=== PATIENT | male | born 1965 | race Caucasian/White ===

== ENCOUNTER 2016-07-06 15:04 | Emergency (ER) | payer MEDICAID ==
--- NOTE | ~2016-07-06 | ER ---
PATIENT'S NAME: KIANA HERNANDEZ [facility] AGE: 51 Y [address] ROOM: [place] [id number] LOCATION: ED ADMIT DATE: 07/06/2016 ER/Outpatient Report DISCHARGE DATE: 07/06/2016 FAMILY PHYSICIAN: PHYSICIAN, NO ATTENDING PHYSICIAN: Gerson See Time of Arrival: Admission date and time documented on the medical record. Time of Evaluation: I saw the patient at 1530 hours. CHIEF COMPLAINT: Elevated blood pressure. HISTORY OF PRESENT ILLNESS: This patient is a 51-year-old male, who comes in with kind of a global headache and elevated blood pressure. He is on no medications at the present time in regard to his blood pressure. He does take Advil over the counter. He does have a past history of diabetes, glv-jejnepa-axqcesric, but he is not on any medications at the present time. No visual or auditory disturbance, lateralizing weakness, numbness, tingling, or loss of function. No chest pain or shortness of breath. No abdominal pain, nausea, vomiting, or diarrhea. No urinary symptoms. No lightheadedness, dizziness, syncope, or near syncope. No fall or trauma. No recent colds, coughs, flus, fever, chills, or sweats. Does have a global headache. No eyes, ears, nose, throat, neck, or spine pain. No joint or muscle swelling, redness, or pain. No skin eruptions or rash. No history of neuro changes or psych issues. HOME MEDICATIONS: See attached medication list. ALLERGIES: NONE. SOCIAL HISTORY: The patient smokes a pack of cigarettes per day. Nondrinker. No other illicit drugs. SIGNIFICANT PAST MEDICAL HISTORY: Zpa-ihydrrb-lslwsrghc diabetes mellitus, hypertension, tobacco abuse, lumbar spinal stenosis, and chronic low back pain. OPERATIONS: Low back surgery x2, knee surgery, and cholecystectomy. REVIEW OF SYSTEMS: All systems reviewed by me are negative with the exception of those discussed PATIENT'S NAME: KIANA HERNANDEZ [facility] AGE: 51 Y [address] ROOM: [place] [id number] LOCATION: ED ADMIT DATE: 07/06/2016 ER/Outpatient Report DISCHARGE DATE: 07/06/2016 FAMILY PHYSICIAN: PHYSICIAN, NO ATTENDING PHYSICIAN: Gerson See in the history of present illness. PHYSICAL EXAMINATION: VITAL SIGNS: Temperature 98.1, tympanic; pulse 85, regular; respirations 16; blood pressure 229/134; and O2 saturation on room air is 96%. Susana Coma Scale of 15. HEAD: Normocephalic. EYES, EARS, NOSE, AND THROAT: Clear. Mucous membranes moist. Fundi benign. NECK: No nuchal rigidity. No thyromegaly or cervical adenopathy. No carotid bruits. SPINE: Negative. LUNGS: Clear. No rales, rhonchi, or wheezes. HEART: Regular. Pulses palpable. ABDOMEN: Soft, nondistended, nontender. Good bowel tones. No organomegaly or abnormal mass palpable. EXTREMITIES: No peripheral edema, cyanosis, or deformity. NEUROVASCULAR: Intact. SKIN: Clear. No skin eruptions or rash. DIAGNOSTIC DATA: EKG showed sinus rhythm. No acute ST elevation, ischemic change, or arrhythmia. Chest x-ray showed no acute infiltrate or changes. We will review x-ray with the radiologist. White count was 10,200, 72 segs, 22 lymphs, 5 monos, 1 eo, 1 baso; hemoglobin 15.7 with hematocrit 45.3; platelet count 186,000. PTT was 26, protime 10.2 with an INR of 1.0. Thyroid tests were normal. CMS was normal except for an elevated potassium of 3.6, elevated glucose of 251, magnesium was 1.8, CPK was 164. Fennm-np-bpoy cardiac enzymes were normal. Urinalysis was clear except for 250 of glucose on dipstick. EMERGENCY DEPARTMENT COURSE: Did start the patient on IV nitroglycerin drip. Did give him up to 10 mcg, blood pressure came down to 152/96. Gave him clonidine 0.1 mg orally. IMPRESSION: 1. Hypertensive urgency. 2. Wld-qcpqkcd-liksjftbc diabetes mellitus. PLAN: We did dismiss the patient home. Start him on clonidine 0.1 mg b.i.d. for 10 days. He is to follow up with personal physician sometime in the next 7 to 10 days or sooner. He will need to get on some diabetes medications also. Discussion ensued with the patient concerning my findings and recommendations, he understands. PATIENT'S NAME: KIANA HERNANDEZ [facility] AGE: 51 Y [address] ROOM: [place] [id number] LOCATION: [facility] ADMIT DATE: 07/06/2016 ER/Outpatient Report DISCHARGE DATE: 07/06/2016 FAMILY PHYSICIAN: EMILI NICHOLS ATTENDING PHYSICIAN: Gerson See MD ADAIR BYRD/modl /[id number] d: 07/07/16 0027 t: 07/07/16 1815, OUTPATIENT REPORT
[2016-07-06 15:58] LABS: BASOPHIL # 0.1 K/uL (0.0-0.2); BASOPHIL % 0.5 %; EOSINOPHIL # 0.1 K/uL (0.0-0.5); EOSINOPHIL % 0.8 %; HEMATOCRIT 45.3 % (37.0-53.0); HEMOGLOBIN 15.7 g/dL (12.0-17.0); IMMATURE GRANULOCYTE % 0.3 %; LYMPHOCYTE # 2.3 K/uL (0.8-4.0); MCH 29.4 pg (27.0-34.0); MCHC 34.7 gm/dL (32.0-36.5); MCV 84.8 fl (83.0-98.0); MONOCYTE # 0.5 K/uL (0.0-1.0); MONOCYTE % 4.8 %; MPV 11.7 fl (9.4-12.4); NEUTROPHIL # (ANC) 7.3 K/uL (1.4-9.0); NEUTROPHIL % 71.6 %; NRBC % 0.8 /100WBC (0-0.00); PLATELET COUNT 186 K/uL (150-450); RBC 5.34 M/uL (4.00-6.00); RDW-CV 12.5 % (11.9-14.6); WBC 10.2 K/uL (4.0-11.0)
[2016-07-06 16:03] LABS: BILIRUBIN URINE NEGATIVE (NEGATIVE); BLOOD URINE NEGATIVE /UL (NEGATIVE); COLOR URINE STRAW (YELLOW); GLUCOSE URINE 250 mg/dL (NEGATIVE); KETONE URINE NEGATIVE (NEGATIVE); LEUKOCYTES URINE NEGATIVE /UL (NEGATIVE); NITRITE URINE NEGATIVE (NEGATIVE); PROTEIN URINE NEGATIVE (NEGATIVE); SPEC GRAVITY URINE 1.005 (1.003-1.035); TURBIDITY URINE CLEAR (CLEAR); UROBILINOGEN URINE NORMAL (NORMAL)
[2016-07-06 16:21] LABS: ALBUMIN 3.9 gm/dL (3.5-5.0); ALK PHOS 86 IU/L (33-138); ALT 41 IU/L (12-78); ANION GAP 12.6 (10.0-19.0); AST 23 IU/L (10-40); BLOOD UREA NITROGEN 11 mg/dL (6-24); CALCIUM 8.7 mg/dL (8.5-10.5); CHLORIDE 104 mMol/L (96-110); CO2 26 mMol/L (22-32); CPK 164 IU/L (35-332); ESTIMATED GFR (MDRD EQUATION) > 60; MAGNESIUM 1.8 mg/dL (1.3-2.6); POTASSIUM 3.6 mMol/L (3.7-5.1); SODIUM 139 mMol/L (135-145); TOTAL BILIRUBIN 0.3 mg/dL (0.0-1.5); TOTAL PROTEIN 7.8 g/dL (6.0-8.4)
[2016-07-06 16:26] LABS: PROTIME 10.2 SECONDS (9.6-11.1); PTT 26 SECONDS (25-32)
== END 2016-07-06 19:05 | disposition disaster alternative care site (69) ==
LOC: GMED 15:04
PROVIDERS: Emergency Medicine
DX: I16.0 Hypertensive urgency (principal); E11.9 Type 2 diabetes mellitus without complications; F17.210 Nicotine dependence, cigarettes, uncomplicated; M54.5 Low back pain; G89.29 Other chronic pain; Z90.49 Acquired absence of other specified parts of digestive tract; Z98.890 Other specified postprocedural states
CPT/HCPCS: A9270; J7030